=== PATIENT | male | born 1995 | race African-American/Black ===

== ENCOUNTER 2018-04-10 15:04 | Emergency (ER) | payer OTHER ==
[2018-04-10] MEDS: IBUPROFEN 600 MG TAB PO (15:58)
[2018-04-10] MEDS: ACETAMINOPHEN 325 MG TAB PO (15:58)
[2018-04-10] MEDS: LORAZEPAM 1 MG TAB PO (17:20)
== END 2018-04-10 19:22 | disposition home or self-care (01) ==
LOC: FTE 15:04
DX: M51.86 Other intervertebral disc disorders, lumbar region (principal)
CPT/HCPCS: 72125; 72131; 73110-LT; 99285-25